=== PATIENT | female | born 1955 | race Caucasian/White ===

== ENCOUNTER → 2016-04-20 | Outpatient (CLI) | payer OTHER ==
[2016-04-20 11:03] LABS: Basophils # (A) 0.1 k/uL (0-0.2); Basophils % (A) 1 %; CH 28.4; CHCM 33.3; Eosinophils # (A) 0.1 k/uL (0-0.7); Eosinophils % (A) 3 %; HCT 35.2 % (34.0-46.0); HDW 2.67; HGB 11.6 gm/dL (11.4-16.0); Luc # (Auto) 0.16; Luc % (Auto) 3; Lymphocytes # (A) 1.2 k/uL (1.0-4.8); Lymphocytes % (A) 21 %; MCH 28.1 pg (25.0-35.0); MCHC 32.9 g/dL (31.0-37.0); MCV 85.6 fL (80.0-100.0); Mean Platelet Volume 8.4; Monocytes # (A) 0.3 k/uL (0-1.0); Monocytes % (A) 6 %; Neutrophils # (A) 3.7 k/uL (1.3-7.7); Neutrophils % (A) 67 %; RBC 4.11 m/uL (3.80-5.40); RDW 13.5 % (11.5-15.5); WBC 5.5 k/uL (3.8-10.6)
[2016-04-20 11:14] LABS: Anion Gap 10 mmol/L; Blood Urea Nitrogen 18 mg/dL (7-17); Calcium 9.9 mg/dL (8.4-10.2); Carbon Dioxide 28 mmol/L (22-30); Chloride 107 mmol/L (98-107); Glucose 78 mg/dL (74-99); Non-African American GFR(MDRD) >60 (>60 ml/min/1.73 sqM); Potassium 4.8 mmol/L (3.5-5.1); Sodium 145 mmol/L (137-145)
== END ==
LOC: LABWHC1 10:29
PROVIDERS: ATTEND Obstetrics & Gynecology
DX: Z01.810 Encounter for preprocedural cardiovascular examination (principal); Z01.812 Encounter for preprocedural laboratory examination
CPT/HCPCS: 80048; 85025

== ENCOUNTER 2016-04-27 05:53 | Inpatient (IN) | payer OTHER ==
[2016-04-16 14:01] VITALS: BMI 25.6
--- NOTE | 2016-04-26 20:38 | P.HPOB ---
History of Present Illness H&P Date: 04/26/16 Chief Complaint: Uterine procidentia This is a 60-year-old female 5 para 5 who presents for total vaginal hysterectomy with anterior and posterior vaginal colporrhaphy due to total uterine procidentia. She complains of symptoms for the last 4-5 years. She complains of vaginal mass, perineal pressure, pelvic pain, back pain, vaginal irritation, occasional urinary incontinence, and aching burning sensation vaginally. She does not complain of constipation or urinary hesitancy. She states her symptoms have worsened and does improve with laying down and manual decompression. She has had some vaginal irritation with some spotting. She would like definitive surgical treatment to control these problems. Obstetrical history: . History of 5 vaginal deliveries at term. Gynecologic history: No history of sexual transmitted diseases. 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 Review of Systems Constitutional: Denies chills, Denies fever Ears, nose, mouth and throat: Denies headache, Denies sore throat Cardiovascular: Denies chest pain, Denies shortness of breath Respiratory: Denies cough Gastrointestinal: Denies abdominal pain, Denies constipation, Denies diarrhea, Denies nausea, Denies vomiting Genitourinary: Reports pelvic pain, Reports prolapse symptoms, Reports urge incontinence Menstruation: Reports postmenopausal Musculoskeletal: Denies myalgias Neurological: Denies numbness, Denies weakness Endocrine: Denies fatigue, Denies weight change Past Medical History Additional Past Medical History / Comment(s): HX KIDNEY STONE, UTERINE PROLAPSE. - OCCASIONAL REDNESS FROM PROLAPSED UTERUS. History of Any Multi-Drug Resistant Organisms: None Reported Past Surgical History: No Surgical Hx Reported Additional Past Surgical History / Comment(s): Lithotripsy Past Anesthesia/Blood Transfusion Reactions: Previous Problems w/ Anesthesia Additional Past Anesthesia/Blood Transfusion Reaction / Comment(s): "W/ EPIDURAL WAS NUMB FROM NECK DOWN." (CHILDBIRTH) Past Psychological History: No Psychological Hx Reported Smoking Status: Current some day smoker Past Alcohol Use History: Rare Additional Past Alcohol Use History / Comment(s): SMOKED ON/OFF 23 YEARS EST, NOW SMOKES 1-2 CIGARETTES PER WEEK. Past Drug Use History: None Reported - Past Family History Mother Family Medical History: Cancer, CVA/TIA, Diabetes Mellitus Additional Family Medical History / Comment(s): BREAST CANCER Medications and Allergies Home Medications Medication Instructions Recorded Confirmed Type Nanette Moctezuma (Wt Loss 1 dose PO BID 04/16/16 04/16/16 History Supplement Allergies Allergy/AdvReac Type Severity Reaction Status Date / Time No Known Allergies Allergy Verified 04/16/16 13:24 Exam Osteopathic Statement: *. No significant issues noted on an osteopathic structural exam other than those noted in the History and Physical/Consult. HEENT: Within normal limits Heart: Regular rate and rhythm Lungs: Clear to auscultation bilaterally Abdomen: Soft, nontender Pelvic exam: Complete uterine procidentia is noted with complete eversion out of the vagina. Vaginal pearson were dry with some excoriation from rubbing. No adnexal masses are palpated. Extremities: Negative Homans Assessment and Plan (1) Uterine procidentia Status: Acute Plan: Proceed with total vaginal hysterectomy with anterior and posterior vaginal colporrhaphy. I have discussed the risks, benefits, and alternative therapies for the above- mentioned procedure and for both sedation/anesthesia as well as necessary blood products administration, if indicated, as they pertain to this patient. The patient has indicated her understanding and acceptance of the risks and procedures discussed.
[~2016-04-27 05:53] MED LIST: DEXAMETHASONE SOD PHOSPHATE 10 MG/ML 1 ML VIAL IV ONE; HYDROmorphone 1 MG/ML 1 ML SYRINGE IVP PRN; LACTATED RINGERS 1,000 ML IV SCH; MIDAZOLAM 2 MG/2 ML VIAL IV PRN; ONDANSETRON 4 MG/2 ML VIAL IVP ONE; ceFAZolin 2 GM in SODIUM CHLORIDE 0.9% 100 ML IVPB ONE
[2016-04-27] MEDS ORDERED: LIDOCAINE 1% 20 ML VIAL (10MG/ML) FOR IV START INTRADERMA ONE (06:28)
[2016-04-27] MEDS ORDERED: EPINEPHrine 1 MG/ML 1 ML AMP IM ONE (07:21)
[2016-04-27] MEDS ORDERED: BACITRACIN 500 UNIT/GM OINT 28.4 GM TUBE TOPICAL ONE (07:26)
[2016-04-27] MEDS ORDERED: fentaNYL (PF) 50 MCG/ML 2 ML AMP ONE (07:30)
[2016-04-27] MEDS ORDERED: MORPHINE SULFATE (PF) 0.3 MG/0.3 ML SYR ONE (07:30)
[2016-04-27] MEDS ORDERED: PROPOFOL 10 MG/ML 20 ML VIAL IV ONE (07:30)
[2016-04-27] MEDS ORDERED: MIDAZOLAM 2 MG/2 ML VIAL ONE (07:30)
--- NOTE | 2016-04-27 09:00 | P.OP ---
Date of Procedure: 04/27/16 Preoperative Diagnosis: Complete uterine procidentia Postoperative Diagnosis: Same Procedure(s) Performed: Total vaginal hysterectomy with anterior and posterior colporrhaphy Anesthesia: spinal (Duramorph) Surgeon: Coleen Howell Sieve Grader Tender #1: Luis Correa Estimated Blood Loss (ml): 50 Pathology: other (Uterus with cervix, vaginal mucosa) Condition: stable Disposition: floor Indications for Procedure: This is a 60-year-old female 5 para 5 who presents for total vaginal hysterectomy with anterior and posterior vaginal colporrhaphy due to total uterine procidentia. She complains of symptoms for the last 4-5 years. She complains of vaginal mass, perineal pressure, pelvic pain, back pain, vaginal irritation, occasional urinary incontinence, and aching burning sensation vaginally. She does not complain of constipation or urinary hesitancy. She states her symptoms have worsened and does improve with laying down and manual decompression. She has had some vaginal irritation with some spotting. She would like definitive surgical treatment to control these problems. Operative Findings: Complete uterine procidentia with grade 3 cystocele was noted and approximately grade 2 rectocele is noted. Uterus is small. Neither ovary was visualized. Description of Procedure: The patient is taken the operating room where she is placed in the dorsal lithotomy position. She is prepped and draped in the normal sterile fashion. The uterus is noted to be completely out of vagina. The anterior lip of the cervix is grasped with a single-tooth tenaculum. Next the cervix was circumferentially injected with one amp of epinephrine to 150 mL of normal saline. Next the cervix was circumscribed with a scalpel. The vaginal mucosa was pushed away from the cervix with a sponge. Next the uterosacral ligaments are clamped on either side with a Kobe clamp, cut with Carvajal scissors, and then sutured with 0 Vicryl suture in a Kobe transfixion stitch and then held on either side with a straight hemostat. Next the posterior peritoneal reflection was identified and entered sharply with Carvajal scissors. The edges of the vaginal mucosa was then tagged with 0 Vicryl suture and held with a curved hemostat for identification. Next a longbilled weighted speculum was placed through the posterior peritoneal reflection. Next the cardinal ligaments were clamped on either side with Kobe clamps, cut with Carvajal scissors, and then sutured with 0 Vicryl suture in Kobe transfixion stitches and cut. Next the vesicouterine peritoneum reflection is identified by placing a finger around the posterior side of the uterus and around to the anterior reflection and entering sharply with Metzenbaum scissors. A right angle bladder retractor is then used to retract the bladder. The uterine arteries are clamped on either side with Kobe clamps, cut with Carvajal scissors, and then sutured with 0 Vicryl suture in Kobe transfixion stitches. The round ligament is also clamped on either side with a Kobe clamp, cut with Carvajal scissors, and sutured with 0 Vicryl suture in Kobe transfixion stitches. Next the uterine ovarian ligament and tube were clamped on either side with a Kobe clamp, cut with Carvajal scissors, and then sutured with 0 Vicryl suture in a [id number] stitch , flashed, and then free tied with another suture of 0 Vicryl suture. These pedicles were held with a straight Donna for identification. The uterus is removed from the field. Excellent hemostasis is noted. Next the peritoneum is closed with 0 Vicryl suture in a pursestring fashion incorporating all the held ligaments. Again neither ovary was visualized prior to closing the vaginal cuff area. Both tubes are visualized and appeared normal. Next the uterine ovarian ligaments are tied together in the middle and cut. Next attention was turned to the cystocele repair. The edges of the vaginal mucosa are held with 2 Allis clamps. Next injection of the same epinephrine solution is injected underneath the mucosa upwards towards the urethra. Metzenbaum scissors were used to dissect underneath the vaginal mucosa and cut along the way up to just below the urethra. Sharp and blunt dissection are used to dissect the bladder away from the vaginal mucosa. Once the bladder is freed, the cystocele is reduced with 0 Vicryl suture in [id number] stitches on either side of the cystocele. Next the edges of the vaginal mucosa are trimmed with Metzenbaum scissors. Next the vaginal mucosa is sutured with 0 Vicryl suture in a running locked fashion incorporating the vaginal cuff. The uterosacral ligaments were also tied together in the midline prior to completely closing the vaginal cuff. Excellent hemostasis is noted. The Bernal catheter is inserted and clear urine is noted. Next the posterior repair was started. 2 Allis clamps are used to grasp the introitus at the 4 and 8 o'clock position. Next injection of epinephrine solution is injected underneath the vaginal cone site upwards towards the cuff. Next a triangular piece of tissue is cut between the 2 Allis clamps and then removed from the field. Metzenbaum scissors are used to dissect underneath the vaginal posterior cuff was towards the vaginal cuff. The edges of the vaginal mucosa were held with Allis clamps. Next the rectocele and enterocele are dissected away from the vaginal mucosa with sharp and blunt dissection. Next the rectocele is reduced with 0 Vicryl suture in interrupted [id number] stitch. Next edges of the vaginal mucosa are trimmed. Next the vaginal mucosa was sutured with 0 Vicryl suture in a running locked fashion up to the introitus and then brought underneath the mucosa and whipstitched to the apex and then subcuticular on the skin up to the apex and tied. Next the vagina is packed with one-inch iodoform gauze with bacitracin ointment. All sponge and needle counts are correct and the patient is then taken to recovery room in stable condition.
[2016-04-27] MEDS ORDERED: SIMETHICONE 80 MG CHEWABLE PO PRN (10:26)
[2016-04-27] MEDS ORDERED: ZOLPIDEM 5 MG TAB PO PRN (10:26)
[2016-04-27] MEDS ORDERED: diphenhydrAMINE 50 MG/ML 1 ML VIAL IVP PRN (10:26)
[2016-04-27] MEDS ORDERED: KETOROLAC 30 MG/ML 1 ML VIAL IVP PRN (10:26)
[2016-04-27] MEDS ORDERED: ONDANSETRON 4 MG/2 ML VIAL IVP PRN (10:26)
[2016-04-27] MEDS ORDERED: Acetaminophen-Codeine 300-30mg TAB PO PRN ×2 (10:26)
[2016-04-27] MEDS ORDERED: IBUPROFEN 600 MG TAB PO PRN (10:26)
[2016-04-27] MEDS ORDERED: METOCLOPRAMIDE 5 MG/ML 2 ML VIAL IVP PRN (10:26)
[2016-04-27] MEDS: LACTATED RINGERS 1,000 ML IV SCH ×2 (10:46→20:53)
[2016-04-27] MEDS: SENNOSIDES-DOCUSATE SODIUM 1 EACH TAB PO SCH ×2 (13:54→20:56)
[2016-04-28] MEDS: LACTATED RINGERS 1,000 ML IV SCH (06:03)
[2016-04-28 06:34] LABS: Basophils # (A) 0.1 k/uL (0-0.2); Basophils % (A) 1 %; CH 28.3; CHCM 32.7; Eosinophils # (A) 0.1 k/uL (0-0.7); Eosinophils % (A) 1 %; HCT 29.9 % (34.0-46.0); HDW 2.58; Luc # (Auto) 0.27; Luc % (Auto) 2; Lymphocytes # (A) 1.5 k/uL (1.0-4.8); Lymphocytes % (A) 13 %; MCH 28.3 pg (25.0-35.0); MCHC 32.5 g/dL (31.0-37.0); MCV 87.1 fL (80.0-100.0); Mean Platelet Volume 8.5; Monocytes # (A) 0.6 k/uL (0-1.0); Monocytes % (A) 5 %; Neutrophils # (A) 8.9 k/uL (1.3-7.7); Neutrophils % (A) 79 %; RBC 3.44 m/uL (3.80-5.40); RDW 13.5 % (11.5-15.5); WBC 11.4 k/uL (3.8-10.6); WBC (Perox) 11.95
[2016-04-28 06:55] LABS: HGB 9.7 gm/dL (11.4-16.0)
[2016-04-28] MEDS ORDERED: ACETAMINOPHEN TAB 325 MG TAB PO PRN (07:43)
--- NOTE | 2016-04-28 08:48 | P.DS ---
Providers Date of admission: 04/27/16 05:53 Expected date of discharge: 04/28/16 Attending physician: Coleen Howell Primary care physician: Stated None - Discharge Diagnosis(es) (1) Uterine procidentia Current Visit: Yes Status: Acute Hospital Course: This is a 60-year-old female who underwent a total vaginal hysterectomy with anterior and posterior vaginal colporrhaphy for complete procidentia on 2016. Her postoperative course has been uncompensated. She denies having any pain. Her packing and Bernal catheter were removed this morning and she has already urinated twice with good amounts. She is passing flatus but no bowel movement yet. Bleeding is minimal. Vital signs are stable. Abdomen is soft with positive bowel sounds 4. Clara-pad shows scant serosanguineous discharge. Extremities show negative Homans. Impression is status post total vaginal hysterectomy with anterior and posterior vaginal colporrhaphy postoperative day #1. Plan is to discharge home later today. Routine postoperative instructions are given. She is advised to follow up in the office in 1 week for a postoperative check. She is advised to continue taking stool softeners as needed at home. She will be given a prescription for ibuprofen 600 mg every 6 hours as needed for pain. She is advised to call the office if she has any further questions or concerns prior to her appointment time. Procedures: Total vaginal hysterectomy with anterior and posterior vaginal colporrhaphy on 04/27/2016 Patient Condition at Discharge: Stable Plan - Discharge Summary New Discharge Prescriptions: Ibuprofen [Motrin] 600 mg PO Q6HR PRN #60 tab PRN Reason: Mild Discomfort Discharge Medication List Nanette Moctezuma (Wt Loss Supplement 1 dose PO BID 04/16/16 [History] Acetaminophen Tab [Tylenol] 650 mg PO Q6HR PRN #0 tab 04/28/16 [Rx] Ibuprofen [Motrin] 600 mg PO Q6HR PRN #60 tab 04/28/16 [Rx] Sennosides-Docusate Sodium [Senokot-S] 2 each PO BID tab 04/28/16 [Rx] Follow up Appointment(s)/Referral(s): Coleen Howell DO [Doctor of Osteopathic Medicine] - 1 Week Patient Instructions/Handouts: Hysterectomy (DC), Hysterectomy (GEN) Activity/Diet/Wound Care/Special Instructions: Diet as tolerated. No lifting, squatting, or stooping. No tub baths. May shower. No intercourse for 6 weeks. Discharge Disposition: HOME SELF-CARE
[2016-04-28] MEDS: SENNOSIDES-DOCUSATE SODIUM 1 EACH TAB PO SCH (09:25)
--- NOTE | 2016-04-28 10:25 | P.PN ---
Progress Note - Text Date: 04/28/2016 Time: 07 The patient is status post vaginal hysterectomy Vital signs stable VAS: 0-10 Patient has no complaints of pain. The patient incurred some minimal itching yesterday, this itching is now subsiding. Pain meds to be managed by service.
[2016-04-28 12:26] VITALS: BP 117/75; PULSE 65; RESP 20; TEMP 99.1
== END 2016-04-28 14:04 | disposition home or self-care (01) | DRG 743 ==
LOC: 2ORWHC 05:53 → 6PED 09:12
PROVIDERS: ADMIT Obstetrics & Gynecology; ATTEND Obstetrics & Gynecology
PROC: 0JQC0ZZ Repair Pelvic Region Subcutaneous Tissue and Fascia, Open Approach (ICD-10-PCS; principal; 2016-04-27 07:30)
PROC: 0UTC7ZZ Resection of Cervix, Via Natural or Artificial Opening (ICD-10-PCS; principal; 2016-04-27 07:30)
PROC: 0UT97ZZ Resection of Uterus, Via Natural or Artificial Opening (ICD-10-PCS; principal; 2016-04-27 07:30)
DX: N81.3 Complete uterovaginal prolapse (principal); F17.210 Nicotine dependence, cigarettes, uncomplicated; Z80.3 Family history of malignant neoplasm of breast; Z87.442 Personal history of urinary calculi
CPT/HCPCS: 85025; 86850; 86900; 86901; 88307